=== PATIENT | female | born 1985 | race Caucasian/White ===

== ENCOUNTER 2023-06-01 21:19 | Inpatient (IN) | payer MEDICAID ==
[~2023-06-01] VITALS: Ht 170.2 cm; Wt 96.0 kg
[2023-06-01 21:57] LABS: Hematocrit 32.8 % (33.0-51.0); Hemoglobin 11.6 g/dL (11.5-16.0); Mean Corpuscular HGB 33.5 pg (26.0-34.0); Mean Corpuscular HGB Conc 35.4 g/dL (31.5-36.5); Mean Corpuscular Volume 95 fL (80-100); Platelet Count 91 K/mm3 (150-400); RDW Coefficient Variation 14.2 % (11.7-14.2); RDW Standard Deviation 49.2 fL (35.1-46.3); Red Blood Cell Count 3.46 M/mm3 (3.80-5.20); White Blood Cell Count 15.59 K/mm3 (4.00-11.30)
[2023-06-01 22:16] LABS: BAND PERCENT MAN 16 % (0-8); BASOPHILS ABSOLUTE MAN 0.15 K/mm3 (0.00-0.23); BASOPHILS PERCENT MAN 1 % (0-2); EOSINOPHILS ABSOLUTE MAN 0.15 K/mm3 (0.00-0.68); EOSINOPHILS PERCENT MAN 1 % (0-6); LYMPHOCYTES ABSOLUTE MAN 0.93 K/mm3 (0.84-5.20); LYMPHOCYTES PERCENT MAN 6 % (21-46); MONOCYTES ABSOLUTE MAN 1.71 K/mm3 (0.16-1.47); MONOCYTES PERCENT MAN 11 % (4-13); NEUTROPHILS ABSOLUTE MAN 12.62 K/mm3 (1.96-9.15); SEG NEUTROPHILS PERCENT MAN 65 % (41-73); TOTAL CELLS COUNTED 100
[2023-06-01 22:20] LABS: Albumin, Blood 3.1 g/dL (3.4-5.0); Albumin/Globulin Ratio 0.8 (0.8-1.8); Bilirubin, Total 5.4 mg/dL (0.1-1.0); Bun/Creatinine Ratio 10.6 (12.0-20.0); Calcium, Blood 8.7 mg/dL (8.5-10.1); Creatinine, Blood 0.57 mg/dL (0.40-1.00); Potassium, Blood 3.3 mmol/L (3.5-5.5); Total Protein, Blood 7.1 g/dL (6.4-8.2)
[2023-06-01] MEDS ORDERED: HYDROmorphone HCl/Pf 1MG SYR IV ONE (23:15)
[2023-06-02] MEDS ORDERED: NS 1,000 ML IV SCH ×2 (00:15→01:45)
[2023-06-02] MEDS ORDERED: Ampicillin Sod/Sulbactam Sod 3 GM in NS 100 ML IV SCH ×2 (00:30→06:00)
[2023-06-02] MEDS ORDERED: HYDROmorphone HCl/Pf 1MG SYR IV PRN ×2 (00:35→11:10)
[2023-06-02 00:47] LABS: International Normalized Ratio 1.63; Prothrombin Time Results 16.6 Sec (9.7-11.5)
[2023-06-02 01:30] LABS: Source, Urine Clean Catch
[2023-06-02 01:38] LABS: Bilirubin, Urine Neg (Neg); Blood, Urine 5+ (Neg); Glucose Qualitative, Urine Neg (Neg); Ketones, Urine Neg (Neg); Leukocyte Esterase, Urine 3+ (Neg); Nitrite, Urine Neg (Neg); Protein, Urine Neg (Neg); Urobilinogen, Urine 2+ (Normal)
[2023-06-02 01:47] VITALS: BP 151/77
[2023-06-02] MEDS ORDERED: Ondansetron HCl 2 MG / ML 2ML Vial IV PRN ×2 (01:50→11:10)
[2023-06-02] MEDS ORDERED: FentaNYL Citrate 50 MCG/ML 2 ML Injection IV PRN (01:50)
[2023-06-02] MEDS ORDERED: OMEP20ER PO (01:51)
[2023-06-02 01:58] LABS: Appearance, Urine Hazy (Clear); Color, Urine Yellow (P-Yellow)
[2023-06-02 01:59] LABS: Amorphous Light (0-Heavy); Bacteria Few /hpf; Mucus Light (0-Heavy); Red Blood Cells, Urine 0-2 /hpf (0-2); Squamous Epithelial Cells Rare /hpf (Few)
[2023-06-02] MEDS ORDERED: Potassium Chloride 40 MEQ in NS 250 ML IV STA (03:27)
[2023-06-02 04:15] LABS: BASOPHILS ABSOLUTE AUTO 0.02 K/mm3 (0.00-0.23); BASOPHILS PERCENT AUTO 0 % (0-2); EOSINOPHILS ABSOLUTE AUTO 0.02 K/mm3 (0.00-0.68); EOSINOPHILS PERCENT AUTO 0 % (0-6); Hematocrit 29.3 % (33.0-51.0); Hemoglobin 10.3 g/dL (11.5-16.0); IMMATURE GRAN ABSOLUTE AUTO 0.03 K/mm3 (0.00-0.10); IMMATURE GRAN PERCENT AUTO 0 % (0-1); LYMPHOCYTES PERCENT AUTO 7 % (21-46); MONOCYTES ABSOLUTE AUTO 0.64 K/mm3 (0.16-1.47); MONOCYTES PERCENT AUTO 7 % (4-13); Mean Corpuscular HGB 33.1 pg (26.0-34.0); Mean Corpuscular HGB Conc 35.2 g/dL (31.5-36.5); Mean Corpuscular Volume 94 fL (80-100); Mean Platelet Volume 10.2 fL (9.1-12.4); NEUTROPHILS ABSOLUTE AUTO 7.69 K/mm3 (1.96-9.15); NEUTROPHILS PERCENT AUTO 86 % (41-73); Platelet Count 73 K/mm3 (150-400); RDW Coefficient Variation 14.3 % (11.7-14.2); RDW Standard Deviation 48.7 fL (35.1-46.3); Red Blood Cell Count 3.11 M/mm3 (3.80-5.20)
[2023-06-02 04:33] LABS: Albumin, Blood 2.7 g/dL (3.4-5.0); Albumin/Globulin Ratio 0.8 (0.8-1.8); Bilirubin, Total 6.2 mg/dL (0.1-1.0); Bun/Creatinine Ratio 13.2 (12.0-20.0); Calcium, Blood 8.3 mg/dL (8.5-10.1); Creatinine, Blood 0.45 mg/dL (0.40-1.00); Globulin, Blood 3.6 g/dL (2.2-4.0); Potassium, Blood 3.9 mmol/L (3.5-5.5); Total Protein, Blood 6.3 g/dL (6.4-8.2)
[2023-06-02] MEDS ORDERED: HYDROmorphone HCl/Pf 1MG SYR IV SCH (06:00)
--- NOTE | 2023-06-02 06:27 | NUR ---
SHIFT SUMMARY AOX4. VSS. ADMITTED THIS AM FOR CHOLECYSTITIS. REPORTS 6 RUQ/LUQ ABD PAIN, MEDICATED c 50MCG IV FENTANYL & PT DENIED ANY PAIN RELIEF, STATING PAIN LEVEL STILL 6-7/10. MEDICATED c 1MG IV DILAUDID & PT STATES PAIN LEVEL DECREASED TO 3/10 & PT ABLE TO REST SOUNDLY. REPORTS NAUSEA c PAIN MEDS, GAVE ZOFRAN. OTHERWISE NO NAUSEA. REPORTS PASSING GAS, LAST BM 05/31. HAS BEEN NPO SINCE MIDNIGHT FOR POTENTIAL SURGERY. CALL LIGHT IN REACH, WILL MONITOR.
[2023-06-02 07:21] VITALS: BP 155/90
[2023-06-02] MEDS ORDERED: Enoxaparin 40 MG/0.4 ML SYR SC SCH (09:00)
[2023-06-02 15:26] VITALS: BP 121/52
[2023-06-02 17:08] LABS: Phosphorus, Blood 3.1 mg/dL (2.5-4.9)
[2023-06-02 19:40] VITALS: BP 121/52
[2023-06-02 19:46] VITALS: BP 121/52
--- NOTE | 2023-06-02 19:47 | NUR ---
REPORT CALLED TO NÉSTOR MORALES AT [facility]. TALKED WITH RN AND LET HER KNOW TRANSPORT TIME IS NOT KNOWN AT THIS TIME. THIS RN TO CALL [facility] WHEN PATIENT TRANSFER.
[2023-06-02 20:18] VITALS: BP 119/60
--- NOTE | 2023-06-02 20:58 | NUR ---
TRANSPORT ARRIVED FOR PATIENT. TRANSPORT TO TAKE PATIENT TO [facility] IN [place]. PATIENTS ROOM CHECKED FOR ANY BELONGINGS, ALL BELONGINGS SENT WITH PATIENT IN PATIENT BELONGINGS BAG.
--- NOTE | 2023-06-02 21:25 | NUR ---
[facility] CALLED AND NOTIFIED OF THAT PATIENT HAS LEFT WITH TRANSPORT IN ROUTE TO [facility].
== END 2023-06-02 21:28 | disposition short-term general hospital (02) | DRG 872 ==
LOC: ER 21:19 → SURS 21:20 → MEDS 21:20
PROVIDERS: Emergency Medicine; Internal Medicine; ADMIT Internal Medicine
DX: A41.9 Sepsis, unspecified organism (principal); K80.42 Calculus of bile duct with acute cholecystitis without obstruction; K76.6 Portal hypertension; D68.9 Coagulation defect, unspecified; R16.1 Splenomegaly, not elsewhere classified; K70.31 Alcoholic cirrhosis of liver with ascites; E87.6 Hypokalemia; I86.8 Varicose veins of other specified sites; E86.0 Dehydration; D69.6 Thrombocytopenia, unspecified; F10.21 Alcohol dependence, in remission; K21.9 Gastro-esophageal reflux disease without esophagitis; Z86.19 Personal history of other infectious and parasitic diseases
CPT/HCPCS: 36415; 74177; 76700; 80053; 81001; 83690; 83735; 83880; 84100; 84484; 84703; 85025; 85610; 85730; 87086; 96365-59; 96366; 96375; 96376; 99285-25; G0378; J0295; J1170; J2405; J3010; J3480; J7030; J7050; Q9967